=== PATIENT | female | born 1990 | race Caucasian/White ===

== ENCOUNTER 2024-07-08 15:53 | Outpatient (CLI) | payer BC, SELFPAY | END 2024-07-08 15:54 | disposition home or self-care (01) | LOC: ANHLAB 15:56 | PROVIDERS: Visit Provider Obstetrics & Gynecology | DX: R30.9 Painful micturition, unspecified (principal) | CPT/HCPCS: 87086 ==

== ENCOUNTER 2024-07-15 10:39 | Observation (INO) | payer BC, SELFPAY ==
--- NOTE | 2024-07-15 10:59 | OBADM ---
This patient, Chely Sr, admitted to the OB room OB Post 115 for observation. Patient/family oriented to hospital policies and general routines including ID bracelet, bed and alarms, visiting hours, pain management, procedures, bathroom and other care routines, personal items, smoking policy, room service/diet, and visiting hours. Patient/Family are encouraged to report perceived risks to care and to ask questions if they do not understand what they are told or what they should do.
[2024-07-15 11:01] VITALS: BP 106/53; PULSE 90
--- NOTE | 2024-07-15 11:15 | PC.NURSE ---
Dr. Bey updated on NST and complaints of lower left sided pain. Orders received to send UA.
[2024-07-15 11:27] LABS: Add Urine Microscopic? NO; Appearance Urine Clear (Clear); Bilirubin Urine Negative (Negative); Blood Urine Negative (Negative); Color Urine Yellow (Yellow); Glucose Urine UA Negative (Negative); Ketones Urine 1+ mg/dL (Negative); Leukocyte Esterase Ur Negative LEU/UL (Negative); Nitrate Urine Negative (Negative); Protein Urine Negative (Negative); Specific Grav Ur 1.017 (1.001-1.035); Urobilinogen Urine 0.2 mg/dL (<2.0); pH Urine 6.5 (5.0-9.0)
[2024-07-15 11:31] VITALS: BP 106/53; PULSE 90
--- NOTE | 2024-07-15 11:38 | P.PNOB_ITS ---
OB - Triage/Final Diagnosis Visit Information Date of evaluation: 07/15/24 Reason for evaluation: other (flank pain) Comments/Additional reasons for admission: I have assessed the risk for this patient, Chely Sr, and determined that she would benefit from observation care. Evaluation Laboratory results: Laboratory Tests 07/15/24 11:11 Urine Color Yellow Urine Appearance Clear Urine pH 6.5 Ur Specific [place] 1.017 Urine Protein Negative Urine Glucose (UA) Negative Urine Ketones 1+ H Ur Blood (Man) Negative Urine Nitrate Negative Urine Bilirubin Negative Urine Urobilinogen 0.2 Leukocyte Esterase Rfl Negative Vital signs: Vital Signs - 24 hr 07/15/24 10:58 07/15/24 11:01 07/15/24 11:31 Pulse Rate 90 90 Blood Pressure 106/53 L Blood Pressure [Left Arm] 106/53 L Oxygen Delivery Room Air
== END 2024-07-15 11:47 | disposition home or self-care (01) ==
PROVIDERS: Admitting Provider Student in an Organized Health Care Education/Training Program; Visit Provider Student in an Organized Health Care Education/Training Program
DX: O26.892 Other specified pregnancy related conditions, second trimester (principal); R10.9 Unspecified abdominal pain; Z3A.25 25 weeks gestation of pregnancy
CPT/HCPCS: 59025; 81003; G0378; G0379

== ENCOUNTER 2024-08-11 14:15 | Outpatient (RCR) | payer BC, SELFPAY ==
[2024-08-08 10:46] LABS: Hematocrit 31.8 % (37.0-47.0); Hemoglobin 10.3 g/dL (12.0-15.0); Mean Corpuscular HGB Conc 32.4 g/dl (32-36); Mean Corpuscular Hemoglobin 30.1 pg (26-34); Mean Platelet Volume 10.9 fl (7.4-10.4); Platelet Count Result 237 k/mm3 (150-375); Red Blood Count 3.42 M/mm3 (4.2-5.4); Red Cell Distribution Width 13.5 % (11.5-14.5); White Blood Count 8.3 K/mm3 (4.5-10.0)
[2024-08-08 11:06] LABS: Glucose 1 Hour PP 50gm Dose 149 mg/dL
[2024-08-08 11:45] LABS: HIV 1/2 Ab P24 Ag Result Negative (Negative)
[2024-08-08 13:21] LABS: Rapid Plasma Reagin Non-Reactive (NonReactive)
[2024-08-11] MEDS: RHO(D) IMMUNE GLOBULIN 300 MCG/2 ML SYRINGE IM (16:35)
== END 2024-08-11 14:30 | disposition home or self-care (01) ==
LOC: ANHLAB 14:15
PROVIDERS: Visit Provider Student in an Organized Health Care Education/Training Program
DX: Z11.4 Encounter for screening for human immunodeficiency virus [HIV] (principal); Z11.3 Encounter for screening for infections with a predominantly sexual mode of transmission; Z29.13 Encounter for prophylactic Rho(D) immune globulin; O36.0190 Maternal care for anti-D [Rh] antibodies, unspecified trimester, not applicable or unspecified; Z3A.00 Weeks of gestation of pregnancy not specified
CPT/HCPCS: 36415; 82947; 84443; 85027; 85461; 86592; 86703; 86850; 86900; 86901; 90384; 96372; G0432; J2790

== ENCOUNTER 2024-08-29 07:00 | Outpatient (CLI) | payer BC, SELFPAY ==
[2024-08-29 07:51] LABS: Glucose Fasting Gestational 88 mg/dL (>/=95)
[2024-08-29 09:42] LABS: Glucose 1 Hour Gest 183 mg/dL (>/=180)
[2024-08-29 11:22] LABS: Glucose 2 Hour Gest 135 mg/dL (>/= 155)
[2024-08-29 11:24] LABS: Glucose 3 Hour Gest 105 mg/dL (>/=140)
== END 2024-08-29 07:01 | disposition home or self-care (01) ==
LOC: ANHLAB 07:01
PROVIDERS: Visit Provider Obstetrics & Gynecology
DX: O99.810 Abnormal glucose complicating pregnancy (principal); Z3A.00 Weeks of gestation of pregnancy not specified
CPT/HCPCS: 36415; 82951; 82952

== ENCOUNTER 2024-10-17 10:17 | Outpatient (CLI) | payer BC, SELFPAY ==
[2024-10-17 10:45] LABS: Basophils Percent Auto 0.2 % (0.2-1.2); Eosinophils Absolute Auto 0.1 K/mm3 (0-0.3); Eosinophils Percent Auto 1.5 % (0-4.4); Hematocrit 36.1 % (37.0-47.0); Hemoglobin 11.7 g/dL (12.0-15.0); Immature Granulocyte Absolute 0.04 K/mm3 (0.00-0.031); Immature Granulocyte Percent A 0.4 % (0-0.5); Lymphocytes Absolute Auto 2.05 K/mm3 (0.9-3.2); Lymphocytes Percent Auto 21.3 % (18.3-44.2); Mean Corpuscular HGB Conc 32.4 g/dl (32-36); Mean Corpuscular Volume 92.6 fl (80-100); Mean Platelet Volume 11.5 fl (7.4-10.4); Monocytes Absolute Auto 0.5 K/mm3 (0.1-0.6); Monocytes Percent Auto 5.4 % (2.6-8.5); Neutrophils Absolute Auto 6.9 K/mm3 (1.3-6.7); Neutrophils Percent Auto 71.2 % (45.5-73.1); Platelet Count Result 192 k/mm3 (150-375); White Blood Count 9.6 K/mm3 (4.5-10.0)
[2024-10-17 10:46] VITALS: BP 135/79; PULSE 95
[2024-10-17 10:49] LABS: Add Urine Microscopic? YES; Appearance Urine Cloudy (Clear); Bacteria Urine Rare /hpf; Bilirubin Urine Negative (Negative); Blood Urine Negative (Negative); Color Urine Yellow (Yellow); Glucose Urine UA Negative (Negative); Ketones Urine Trace mg/dL (Negative); Leukocyte Esterase Ur 2+ LEU/UL (Negative); Nitrate Urine Negative (Negative); Non Pathogenic Casts 0-2; Protein Urine Trace mg/dL (Negative); RBC Urine 0-2 /hpf (0-2); Specific Grav Ur 1.021 (1.001-1.035); Squamous Epithelial Cell Urine Many /hpf (Few)
[2024-10-17 10:56] LABS: Alanine Aminotransferase 14 U/L (6-35); Albumin Level 3.4 g/dL (3.5-5.1); Alkaline Phosphatase 111 U/L (38-126); Anion Gap 10 mmol/L (4-12); Aspartate Amino Transferase 23 U/L (14-36); Bilirubin,Total 0.4 mg/dL (0.2-1.3); Blood Urea Nitrogen 9 mg/dL (7-17); Calcium 8.9 mg/dL (8.4-10.2); Carbon Dioxide 22 mmol/L (22-30); Chloride 104 mmol/L (98-107); Creatinine Urine 175.4 mg/dL; Estimated Glomerular Filt Rate > 60; Glucose 107 mg/dL (65-110); Potassium 3.6 mmol/L (3.4-5.0); Sodium 136 mmol/L (137-145); Total Protein Urine Random 11 mg/dL; Ur Ttl Prot Creatinine Ratio 0.06 mg/mg (0-0.20); Uric Acid 7.1 mg/dL (2.5-7.5)
[2024-10-17 11:01] VITALS: BP 132/58; PULSE 91
[2024-10-17 11:14] VITALS: BP 135/79; PULSE 103
== END 2024-10-17 11:14 | disposition home or self-care (01) ==
LOC: ANHOBOP 10:21 → ANHOBPP 10:22
PROVIDERS: Visit Provider Student in an Organized Health Care Education/Training Program
DX: O13.9 Gestational [pregnancy-induced] hypertension without significant proteinuria, unspecified trimester (principal); Z3A.00 Weeks of gestation of pregnancy not specified
CPT/HCPCS: 36415; 59025; 80053; 81001; 82570; 84156; 84550; 85025

== ENCOUNTER 2024-10-19 10:05 | Outpatient (CLI) | payer BC, SELFPAY ==
[2024-10-19 10:40] LABS: Hematocrit 35.9 % (37.0-47.0); Hemoglobin 11.8 g/dL (12.0-15.0); Mean Corpuscular HGB Conc 32.9 g/dl (32-36); Mean Corpuscular Hemoglobin 30.1 pg (26-34); Mean Corpuscular Volume 91.6 fl (80-100); Mean Platelet Volume 12.2 fl (7.4-10.4); Platelet Count Result 194 k/mm3 (150-375); Red Blood Count 3.92 M/mm3 (4.2-5.4); Red Cell Distribution Width 14.9 % (11.5-14.5); White Blood Count 9.2 K/mm3 (4.5-10.0)
--- OUTSIDE RECORDS SUMMARY | 2024-10-19 11:10 | XMS_ITS | Referral Summary ---
Author Organization [facility] Address [address] [place] [address] Care Team Providers Care Rural Service Engineer Name Role Phone No, Physician Primary Care Provider [phone] No, Physician Unavailable Encounters Date Type Department Care Team Description 08/04/2024 5:15 PM UNDERCUTTER OPERATOR Office Visit [facility] at [place] [phone] Tyesha Kinney NP Acute respiratory infection (Primary Dx); Shortness of breath; Mild intermittent asthma with exacerbation 08/04/2024 5:06 PM UNDERCUTTER OPERATOR - 08/04/2024 5:47 PM UNDERCUTTER OPERATOR Emergency [facility] Emergency Department [address] [place] [id number] Discharge Disposition: Left without being seen 08/02/2024 2:45 PM UNDERCUTTER OPERATOR Office Visit [facility] Medical [facility] at [address] [phone] Indiana Cody NP Acute respiratory infection (Primary Dx) 07/26/2024 6:55 PM UNDERCUTTER OPERATOR - 07/26/2024 8:11 PM UNDERCUTTER OPERATOR Hospital Encounter [facility] [address] [place] [address] Demi Elliott DO Discharge Disposition: Discharge to home or self care from Last 3 Months Allergies Active Allergy Reactions Criticality Noted Date Comments Codeine Anaphylaxis High 10/24/2022 Pt states her eyes rolled back and went unconscious. 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 Active aspirin 81 mg chewable tablet Take 1 tablet (81 mg total) by mouth daily Active ondansetron ODT (ZOFRAN-ODT) 4 mg disintegrating tablet 4 Active fluocinonide (LIDEX) 0.05 % external solution Apply topically 2 (two) times a day 4 Active albuterol HFA (PROVENTIL HFA,VENTOLIN HFA,PROAIR HFA) 90 mcg/actuation inhalerIndications :Mild intermittent asthma with exacerbation Inhale 2 puffs every 4 (four) hours as needed for shortness of breath or wheezing 4 Active azithromycin (ZITHROMAX) 250 mg tabletIndications: Acute respiratory infection Take 2 tablets the first day, then 1 tablet daily for 4 days. 6 tablet 4 Active Active Problems Problem Noted Date Diagnosed Date Irregular bleeding 06/30/2023 Assessment & Plan (06/30/2023 4:37 PM UNDERCUTTER OPERATOR): Discussed irregular bleeding likely due from switching methods from Nuvaring to pills. We will plan to change her pills to Sprintec as she would like to continue pills for now. When to call discussed including worsening or persistent bleeding. Consider CBC. Plan to reevaluate in 3 months after new pills, sooner if needed. Encounter for general jayjay ferrell and advice on contraceptive management 03/27/2023 Assessment & Plan (04/23/2023 11:01 AM CDT): Discussed that some vaginal discharge is normal with the vaginal ring. She would like to go back on the pill. Reviewed risks, benefits, warning signs, and proper use. She will take another home test Thursday before starting new pills. She will call with any concerns. Assessment & Plan (03/27/2023 2:43 PM CDT): Discussed multiple options. She has decided on Nuvaring. Reviewed risks, benefits, warning signs, and proper use. Estimated Date of Delivery Comme nts Yes 10/23/2024 Based on Other B asis Social History Tobacco Use Types Packs/Day Years Used Date Smoking Tobacco: Never Tobacco Cessation:Counseling Given: Yes Humiliation, Afraid, Rape, and Kick questionnair e Answer Date Recorded Within the last year, have y ou been afraid of your partner or ex-partner? No 03/27/2023 Within the last year, have y ou been humiliated or emotionally abused in other ways by your partner or ex-partner? No Within the last year, have y ou been kicked, hit, slapped, or otherwise physically hurt by your partner or ex-partner? No 03/27/2023 Within the last year, have y ou been raped or forced to have any kind of sexual activity by your partner or ex-partner? No 03/27/2023 Social Connection and Isolat ion Panel [NHANES] Answer Date Recorded In a typical week, how many times do you talk on the phone with family, friends, or neighbors? More than three times a week 07/26/2024 How often do you get togethe r with friends or relatives? More than three times a week 07/26/2024 How often do you attend chur or methodist services? More than 4 times per year 07/26/2024 Do you belong to any clubs o r organizations such as buddhist groups, unions, fraternal or athletic groups, or school groups? No 07/26/2024 How often do you attend meet ings of the clubs or organizations you belong to? Never 07/26/2024 Are you , , di vorced, , never , or living with a partner? 07/26/2024 AUDIT-C Answer Date Recorded Q1: How often do you have a drink containing alcohol? Never 07/26/2024 Q2: How many drinks containi ng alcohol do you have on a typical day when you are drinking? Patient does not drink Q3: How often do you have si x or more drinks on one occasion? Never 07/26/2024 Overall Financial Resource Strain (CARDIA) Answe r Date Recorded How hard is it for you to pa y for the very basics like food, housing, medical care, and heating? Not hard at all 07/26/2024 PHQ-2 Answer Date Recorded PHQ-2 Total Score 0 07/26/2024 [facility] - Occupational Stress Questionnaire Answer Date Recorded Do you feel stress - tense, restless, nervous, or anxious, or unable to sleep at night because your mind is troubled all the time - these days? Not at all 07/26/2024 Exercise Vital Sign Answer Date Recorde d On average, how many days pe r week do you engage in moderate to strenuous exercise (like a brisk walk)? 0 days 07/26/2024 On average, how many minutes do you engage in exercise at this level? 0 min 07/26/2024 Hunger Vital Sign Answer Date Recorded Within the past 12 months, y ou worried that your food would run out before you got the money to buy more. Never true 07/26/20 24 Within the past 12 months, t he food you bought just didn't last and you didn't have money to get more. Never true 07/26/2024 PRAPARE - Transportation Answer Date Re corded In the past 12 months, has l ack of transportation kept you from medical appointments or from getting medications? No 07/17 In the past 12 months, has l ack of transportation kept you from meetings, work, or from getting things needed for daily living? No 07/26/2024 Housing Stability Vital Sign Answer Gonzalez e Recorded In the last 12 months, was t here a time when you were not able to pay the mortgage or rent on time? No 07/26/2024 In the past 12 months, how m any times have you moved where you were living? 0 07/26/2024 At any time in the past 12 m [facility], were you homeless or living in a half-way (including now)? No 07/26/2024 Personal Safety Answer Date Recorded Have you ever been in or are you currently in a harmful physical or emotional relationship or is someone making you feel afraid or unsafe? Denies 08/04/2024 Estimated Date of Delivery Comme nts Yes 10/23/2024 Based on Other B asis Sex and Gender Information Value Date Recorded Sex Assigned at Not on file Legal Sex Female 8:55 AM UNDERCUTTER OPERATOR Gender Identity Not on file Sexual Orientation Not on file Last Filed Vital Signs Vital Sign Reading Time Taken Comments Blood Pressure 100/54 08/04/2024 5:28 PM UNDERCUTTER OPERATOR Pulse 114 08/04/2024 5:28 PM UNDERCUTTER OPERATOR Temperature 37.7 C (99.8 F) 08/04/2024 5:28 PM UNDERCUTTER OPERATOR Respiratory Rate 21 08/04/2024 5:28 PM UNDERCUTTER OPERATOR Oxygen Saturation 98% 08/04/2024 5:28 PM UNDERCUTTER OPERATOR Inhaled Oxygen Concentration - - Weight 100.2 kg (221 lb) 08/04/2024 5:28 PM UNDERCUTTER OPERATOR Height 162.6 cm (5' 4 ) 08/04/2024 5:28 PM UNDERCUTTER OPERATOR Body Mass Index 37.93 08/04/2024 5:28 PM UNDERCUTTER OPERATOR Plan of Treatment Upcoming Encounters Date Type Department Care Team (Late st Contact Info) Description 10/23/2024 Hospital Encounter [facility] [address] [place] [address] Demi Elliott, [address] [place] [address] Procedures Procedure Name Priority Date/Time Associated Diagnosis Comments POC INFLUENZA A/B, COVID-19 ANTIGEN Routine 08/02/2024 2:49 PM UNDERCUTTER OPERATOR Acute respiratory infection URINALYSIS, MICROSCOPIC ONLY STAT 07/26/2024 7:11 PM UNDERCUTTER OPERATOR URINALYSIS AND REFLEX TO MICROSCOPIC AND CULTURE STAT 07/26/2024 7:11 PM UNDERCUTTER OPERATOR PAP AND HPV, REFLEX TO HPV GENOTYPES Routine 03/27/2023 3:20 PM CDT Well woman exam from Last 3 Months or Most Recently Relevant to Health Maintenance Results * POC Influenza A/B, COVID-19 antigen (08/02/2024 2:49 PM UNDERCUTTER OPERATOR) Pathologist [facility] Influenza A Ag, POC Negative Negative [facility] [place] Influenza B Ag, POC Negative Negative [facility] COVID-19 Ag POC Presumptive Negative Presumptive Negative, Invalid [facility] Nasal 08/02/2024 2:49 PM UNDERCUTTER OPERATOR Indiana Cody NP POINT OF CARE TEST ORDER VARSHA Final Result [facility] [address] [phone] * (ABNORMAL) Urinalysis reflex to microscopic and culture Urine, clean voided (07/26/2024 7:11 PM UNDERCUTTER OPERATOR) Color, ur Yellow Yellow Clarity, ur Turbid(A) Clear [facility] ([place]) Specific gravity, ur 1.016 1.003 - 1.030 [facility] ([place]) pH, urine 6.5 [facility] ([place]) Comment: Interpretive Data U rine pH is affected by diet, medications, systemic acid-base disturbances, and renal tubular function. pH may affect urinary stone formation. For example, urine pH below 6.0 may help reduce the tendency for calcium phosphate stones and pH greater than 6.0 may reduce the tendency for uric acid stone formation. Source: [facility] [employer] Current Interpretive Data was last revised on 2017 Protein, ur ql Negative Negative [facility] ([place]) Glucose, ur ql Negative Negative [facility] ([place]) Ketones, ur Negative Negative [facility] ([place]) Bilirubin, ur Negative Negative [facility] ([place]) Blood, ur Negative Negative [facility] ([place]) Urobilinogen, ur <2.0 <2.0 mg/dL [facility] ([place]) Nitrite, ur Negative Negative [facility] ([place]) Leukocyte esterase, ur 3+(A) Negative [facility] ([place]) UA reflex comment Reflex to microscopic UA will be performed. [facility] ([place]) Urine, clean voided 07/26/2024 7:11 PM UNDERCUTTER OPERATOR 07/26/2024 7:17 PM UNDERCUTTER OPERATOR Demi Elliott DO LAB MICROBIOLOGY - GENE RAL ORDERABLES Final Result [facility] ([place]) [address] [facility] [employer] [place] [address] * (ABNORMAL) Urinalysis, microscopic only (07/26/2024 7:11 PM UNDERCUTTER OPERATOR) WBC, ur 6-10(A) 0 - 5 /HPF RBC, ur 0-2 0 - 2 /HPF [facility] ([place]) Epithelial cells, squamous, ur 11-20(A) 0 - 5 /HPF [facility] ([place]) Bacteria, ur Trace(A) [facility] ([place]) Mucous, ur Present(A) [facility] ([place]) Culture Reflex Comment Reflex conditions for urine culture (WBC >10) not met. [facility] ([place]) Urine, clean voided 07/26/2024 7:11 PM UNDERCUTTER OPERATOR 07/26/2024 7:17 PM UNDERCUTTER OPERATOR Demi Elliott DO LAB URINE ORDERABLES Fi nal Result Performing Organization Address City/[facility]/ZIP Co de Phone Number [facility] ([place]) 1 [facility] [employer] [place] [address] * Pap and HPV, reflex to HPV Genotypes (03/27/2023 3:20 PM CDT) CLINICAL INFORMATION: [facility] Comment:None given LMP [facility] Comment:NONE GIVEN Previous Pap [facility] Comment:NONE GIVEN Prev. Bx [facility] Comment:NONE GIVEN SOURCE: [facility] Comment:Cervix, Endocervix Pap, specimen adequacy [facility] [employer] [facility] Comment: Satisfactory for evaluation. Endocervical/transformation zone component present. Age and/or menstrual status not provided HPV interp [facility] Comment: Cytology Results: Negative for intraepithelial lesion or malignancy. 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 Comment: [place], CT(ASCP) CT screening location: [place] [address] [place] [address] Comment [facility] Comment: EXPLANATORY NOTE: The Pap is a screening test for cervical cancer. It is not a diagnostic test and is subject to false negative and false positive results. It is most reliable when a satisfactory sample, regularly obtained, is submitted with relevant clinical findings and history, and when the Pap result is evaluated along with historic and current clinical information. Human papillomavirus DNA, High Risk E6/E7 Not Detected NOT DETECTED [facility] Comment: Not Detected High Risk HPV types (16,18,31,33,35,39,45,51,52, 56,58,59,66,68) were not detected. Other HPV types which cause anogenital lesions may be present. The significance of the other types of HPV in malignant processes has not been established. Methodology: Real Time PCR Thin prep 03/27/2023 3:20 PM CDT 03/28/2023 1:26 AM CDT Joann Bhatia NP LAB CYTOLOGY ORDERABLES Fin al Result [facility] [address] [place] [address] [facility] [address] [facility] [place] [address] from Last 3 Months or Most Recently Relevant to Health [place] [address] [facility] OOS [employer] ACCESS OOS [employer] ACCESS OOS Care Teams Rural Service Engineer Relationship Specialty Start Date End Date No, Physician PCP - General 07/27/24 No, Physician 07/27/24
--- OUTSIDE RECORDS SUMMARY | 2024-10-19 11:10 | XMS_ITS | Clinical Summary ---
Author Organization [facility] Address [address] [place] [address] Care Team Providers Care World Travel Counselor Name Role Phone No, Physician Primary Care Provider [phone] No, Physician Unavailable Allergies Active Allergy Reactions Criticality Noted Date Comments Codeine Anaphylaxis High 10/24/2022 Pt states her eyes rolled back and went unconscious. 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 Active aspirin 81 mg chewable [...] 06/30/2023 Assessment & Plan (06/30/2023 4:37 PM MEDICAL ADMINISTRATIVE SPECIALIST): Discussed irregular bleeding likely due from switching [...] Yes 10/23/2024 Based on Other B asis Encounters Date Type Department Care Team Description 08/04/2024 5:15 PM MEDICAL ADMINISTRATIVE SPECIALIST Office Visit [facility] at [address] [phone] Tyesha Kinney NP Acute respiratory infection (Primary Dx); Shortness of breath; Mild intermittent asthma with exacerbation 08/04/2024 5:06 PM MEDICAL ADMINISTRATIVE SPECIALIST - 08/04/2024 5:47 PM MEDICAL ADMINISTRATIVE SPECIALIST Emergency [facility] Emergency Department 1 [place] [address] Discharge Disposition: Left without being seen 08/02/2024 2:45 PM MEDICAL ADMINISTRATIVE SPECIALIST Office Visit [facility] Medical [facility] Care at [address] [place] [phone] [place] Cody NP Acute respiratory infection (Primary Dx) 07/26/2024 6:55 PM MEDICAL ADMINISTRATIVE SPECIALIST - 07/26/2024 8:11 PM MEDICAL ADMINISTRATIVE SPECIALIST Hospital Encounter [facility] 1 [place] [address] Demi Elliott, Discharge Disposition: Discharge to home or self care from Last 3 Months Surgical History Surgery Date Site/Laterality Comments SECTION 01/15/2011 - 02/13/2011 APPENDECTOMY 02/14/2011 - 03/16/2011 APPENDECTOMY SECTION Medical History Medical History Date Comments Mental disorder anxiety Thyroid disease hypothyroid and hashimotos Autoimmune disease hashimotos Depression Psoriasis Family History Medical History Relation Name Comments Cervical cancer Mother's Sister Relation Name Status Comments Maternal cousin Alive Mother's Sister Alive Social History Tobacco Use Types Packs/Day Years [...] 07/26/2024 How often do you attend chur ch or gnosticist services? More than 4 times per year 07/26/2024 Do you belong to any clubs o r organizations such as rastafarian groups, unions, fraternal or athletic groups, or [...] Date Recorded PHQ-2 Total Score 0 07/26/2024 [facility] of Occupat ional Health - Occupational Stress Questionnaire Answer Date Recorded [...] any time in the past [facility], were you homeless or living in a jail (including now)? No 07/26/2024 Personal Safety Answer [...] on file Legal Sex Female 8:55 AM MEDICAL ADMINISTRATIVE SPECIALIST Gender Identity Not on file Sexual Orientation Not on file Obstetrics History Para Term AB IAB SAB Ectopic Multiple Livin g Live Births 3 2 0 0 0 0 0 0 Date Outcome GA Total Labor Labor/2nd/3rd Weight Sex Type Anes PTL Nani A1 A5 Name Clin Para Para Current Summary Episode Dates Number of Fetuses Estimated Date of Delivery 07/26/2024 - Present (10/19/2024) 10/23/2024 (set by Connie Pantoja, EDUARDA on 07/26/2024 based on Other Basis) Dating Summary Based On KATIE [place] Diff Other Basis 10/23/2024 Working Vitals Pregravid Weight Height TWG (As of 10/19/2024) Pregrav id BMI 162.6 cm (5' 4 ) Date GA Fund Present FHR Mvmt BP Weight Edema Alb Glu Ket Dil/ Eff/Sta 4 27w2d Inpatient data not displayed here. See encounter summary. Last Filed Vital Signs Vital Sign Reading Time Taken Comments Blood Pressure 100/54 08/04/2024 5:28 PM MEDICAL ADMINISTRATIVE SPECIALIST Pulse 114 08/04/2024 5:28 PM MEDICAL ADMINISTRATIVE SPECIALIST Temperature 37.7 C (99.8 F) 08/04/2024 5:28 PM MEDICAL ADMINISTRATIVE SPECIALIST Respiratory Rate 21 08/04/2024 5:28 PM MEDICAL ADMINISTRATIVE SPECIALIST Oxygen Saturation 98% 08/04/2024 5:28 PM MEDICAL ADMINISTRATIVE SPECIALIST Inhaled Oxygen Concentration - - Weight 100.2 kg (221 lb) 08/04/2024 5:28 PM MEDICAL ADMINISTRATIVE SPECIALIST Height 162.6 cm (5' 4 ) 08/04/2024 5:28 PM MEDICAL ADMINISTRATIVE SPECIALIST Body Mass Index 37.93 08/04/2024 5:28 PM MEDICAL ADMINISTRATIVE SPECIALIST Plan of Treatment Upcoming Encounters Date Type Department Care Team (Late st Contact Info) Description 10/23/2024 Hospital Encounter [facility] 1 [place] [address] Demi Elliott, [address] [place] [address] Health Maintenance Due Date Last Done Comments Hepatitis C Screening 1991 Varicella Vaccines (1 of 2 - 13+ 2-dose series) 12/03/2004 Hepatitis B Screening 12/03/2009 Pneumococcal vaccine <65 (1 of 2 - PCV) 12/03/2010 Cervical Cancer Screening 03/27/2024 03/27/2023 Regular Well Visit/Exam 18-64 03/27/2024 03/27/2023 Influenza Vaccine (#1) 2024 06/26/2023 Depression Screening 07/26/2025 07/26/2024, 03/27/2023 DTaP/Tdap/Td Vaccine (2 - Td or Tdap) 03/29/2032 03/29/2022 HPV Vaccines Aged Out No longer eligi ble based on patient's age to complete this topic Procedures Procedure Name Priority Date/Time Associated Diagnosis Comments POC INFLUENZA A/B, COVID-19 ANTIGEN Routine 08/02/2024 2:49 PM MEDICAL ADMINISTRATIVE SPECIALIST Acute respiratory infection URINALYSIS, MICROSCOPIC ONLY STAT 07/26/2024 7:11 PM MEDICAL ADMINISTRATIVE SPECIALIST URINALYSIS AND REFLEX TO MICROSCOPIC AND CULTURE STAT 07/26/2024 7:11 PM MEDICAL ADMINISTRATIVE SPECIALIST PAP AND HPV, REFLEX TO HPV GENOTYPES Routine 03/27/2023 3:20 PM CDT Well woman exam from Last 3 Months or Most Recently Relevant to Health Maintenance Results * POC Influenza A/B, COVID-19 antigen (08/02/2024 2:49 PM MEDICAL ADMINISTRATIVE SPECIALIST) Influenza A Ag, POC Negative Negative [facility] [place] Influenza B Ag, POC Negative Negative [facility] COVID-19 Ag POC Presumptive Negative Presumptive Negative, Invalid [facility] Nasal 08/02/2024 2:49 PM MEDICAL ADMINISTRATIVE SPECIALIST us Indiana Cody NP POINT OF CARE TEST ORDER VARSHA Final Result [facility] [place] [id number] [address] * (ABNORMAL) Urinalysis reflex to microscopic and culture Urine, clean voided (07/26/2024 7:11 PM MEDICAL ADMINISTRATIVE SPECIALIST) Color, ur Yellow Yellow Clarity, ur Turbid(A) [...] tendency for uric acid stone formation. Source: [facility] RoomActually Current Interpretive Data was last revised on [...] ([place]AY[place]) Urine, clean voided 07/26/2024 7:11 PM MEDICAL ADMINISTRATIVE SPECIALIST 07/26/2024 7:17 PM MEDICAL ADMINISTRATIVE SPECIALIST us Demi Elliott DO LAB MICROBIOLOGY - GENE RAL ORDERABLES Final Result [facility] ([place]) 1 [facility] Department [place] [address] * (ABNORMAL) Urinalysis, microscopic only (07/26/2024 7:11 PM MEDICAL ADMINISTRATIVE SPECIALIST) WBC, ur 6-10(A) 0 - 5 /HPF RBC, ur 0-2 0 - 2 /HPF [facility] ([place]) Epithelial cells, squamous, ur 11-20(A) 0 - 5 /HPF [facility] ([place]) Bacteria, ur Trace(A) [facility] ([place]) Mucous, ur Present(A) [facility] ([place]) Culture Reflex Comment Reflex conditions for urine culture (WBC >10) not met. [facility] Urine, clean voided 07/26/2024 7:11 PM MEDICAL ADMINISTRATIVE SPECIALIST 07/26/2024 7:17 PM MEDICAL ADMINISTRATIVE SPECIALIST Demi Elliott DO LAB URINE ORDERABLES [facility] Result [facility] ([place]) 1 [facility] Department [place] [address] * Pap and HPV, reflex to HPV Genotypes (03/27/2023 3:20 PM CDT) CLINICAL INFORMATION: [facility] Comment:None given LMP [facility] Comment:NONE GIVEN Previous Pap [facility] Comment:NONE GIVEN Prev. Bx [facility] Comment:NONE GIVEN SOURCE: [facility] Comment:Cervix, Endocervix Pap, specimen adequacy [facility] Comment: Satisfactory for evaluation. Endocervical/transformation zone component present. Age and/or menstrual status not provided HPV interp [facility] Comment: Cytology Results: Negative for intraepithelial lesion or malignancy. [employer] [facility] Comment: [place], CT(ASCP) CT screening location: [place] [address] [place] [address] Comment [facility] Comment: EXPLANATORY NOTE: The Pap is [...] High Risk E6/E7 Not Detected NOT DETECTED [facility] Comment: Not Detected High Risk HPV types (16,18,31,33,35,39,45,51,52, 56,58,59,66,68) were not detected. Other HPV types which cause anogenital lesions may be present. The significance of the other types of HPV in malignant processes has not been established. Methodology: Real Time PCR Thin prep 03/27/2023 3:20 PM CDT 03/28/2023 1:26 AM CDT Joann Bhatia NP LAB CYTOLOGY ORDERABLES Fin al Result [facility] [address] [place] [address] [employer]anjan [facility] [address] [place] [address] from Last 3 Months or Most Recently Relevant to Health Maintenance Insurance [address] [place] [id number] [employer] O[address] [place] [id number] [place] [address] [place] [address] [employer] Care Teams World Travel Counselor Relationship Specialty Start Date End Date No, Physician PCP - General 07/27/24 No, Physician 07/27/24
[2024-10-19 11:17] LABS: Syphilis IgG/IgM Antibody Negative (Negative)
[2024-10-19 11:32] LABS: HIV 1/2 Ab P24 Ag Result Negative (Negative)
== END 2024-10-19 10:06 | disposition home or self-care (01) ==
LOC: ANHLAB 10:07
PROVIDERS: Visit Provider Student in an Organized Health Care Education/Training Program
DX: Z01.818 Encounter for other preprocedural examination (principal)
CPT/HCPCS: 36415; 85027; 86593; 86703; 86850; 86900; 86901; G0432

== ENCOUNTER 2024-10-20 05:30 | Inpatient (IN) | payer BC, SELFPAY ==
[2024-10-20] VITALS (55 sets, daily range): BP systolic 89–147; BP diastolic 39–89; PULSE 60–95; RESP 14–18; TEMP 36.1–36.8; O2SAT 92–100; BMI 41.8
--- OUTSIDE RECORDS SUMMARY | 2024-10-20 00:26 | XMS_ITS | Referral Summary ---
Author Organization [facility] Address 1 [place] [address] Care Team Providers Care Evp Global Product Leadership Name Role Phone No, Physician Primary Care Provider [phone] No, Physician Unavailable Encounters Date Type Department Care Team Description 08/04/2024 5:15 PM TECHNOLOGY RESOURCE TEACHER Office Visit [facility] Medical Group [facility] Care at [place] [phone] Tyesha Kinney NP Acute respiratory infection (Primary Dx); Shortness of breath; Mild intermittent asthma with exacerbation 08/04/2024 5:06 PM TECHNOLOGY RESOURCE TEACHER - 08/04/2024 5:47 PM TECHNOLOGY RESOURCE TEACHER Emergency [facility] Emergency Department [address] [place] [address] Discharge Disposition: Left without being seen 08/02/2024 2:45 PM TECHNOLOGY RESOURCE TEACHER Office Visit [facility] Medical [facility] Care at [address] [phone] Indiana Cody NP Acute respiratory infection (Primary Dx) 07/26/2024 6:55 PM TECHNOLOGY RESOURCE TEACHER - 07/26/2024 8:11 PM TECHNOLOGY RESOURCE TEACHER Hospital Encounter [facility] [address] [place] [id number] Demi Elliott DO Discharge Disposition: Discharge to [...] 1 tablet (112 mcg total) by mouth 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 More than 4 times per year 07/26/2024 Do you belong to any clubs o r organizations such as jain groups, unions, fraternal or athletic groups, or [...] Date Recorded PHQ-2 Total Score 0 07/26/2024 [facility] of Occupat ional [facility] - Occupational Stress Questionnaire Answer Date [...] any time in the past 12 m [facility], were you homeless or living in a custodial (including now)? No 07/26/2024 Personal Safety Answer [...] on file Legal Sex Female 8:55 AM TECHNOLOGY RESOURCE TEACHER Gender Identity Not on file Sexual Orientation Not on file Last Filed Vital Signs Vital Sign Reading Time Taken Comments Blood Pressure 100/54 08/04/2024 5:28 PM TECHNOLOGY RESOURCE TEACHER Pulse 114 08/04/2024 5:28 PM TECHNOLOGY RESOURCE TEACHER Temperature 37.7 C (99.8 F) 08/04/2024 5:28 PM TECHNOLOGY RESOURCE TEACHER Respiratory Rate 21 08/04/2024 5:28 PM TECHNOLOGY RESOURCE TEACHER Oxygen Saturation 98% 08/04/2024 5:28 PM TECHNOLOGY RESOURCE TEACHER Inhaled Oxygen Concentration - - Weight 100.2 kg (221 lb) 08/04/2024 5:28 PM TECHNOLOGY RESOURCE TEACHER Height 162.6 cm (5' 4 ) 08/04/2024 5:28 PM TECHNOLOGY RESOURCE TEACHER Body Mass Index 37.93 08/04/2024 5:28 PM TECHNOLOGY RESOURCE TEACHER Plan of Treatment Upcoming Encounters Date Type Department Care Team (Late st Contact Info) Description 10/23/2024 Hospital Encounter [facility] 1 [place] [address] Demi Elliott, [address] [place] [id number] Procedures Procedure Name Priority Date/Time Associated Diagnosis Comments POC INFLUENZA A/B, COVID-19 ANTIGEN Routine 08/02/2024 2:49 PM TECHNOLOGY RESOURCE TEACHER Acute respiratory infection URINALYSIS, MICROSCOPIC ONLY STAT 07/26/2024 7:11 PM TECHNOLOGY RESOURCE TEACHER URINALYSIS AND REFLEX TO MICROSCOPIC AND CULTURE STAT 07/26/2024 7:11 PM TECHNOLOGY RESOURCE TEACHER PAP AND HPV, REFLEX TO HPV GENOTYPES Routine 03/27/2023 3:20 PM CDT Well woman exam from Last 3 Months or Most Recently Relevant to Health Maintenance Results * POC Influenza A/B, COVID-19 antigen (08/02/2024 2:49 PM TECHNOLOGY RESOURCE TEACHER) Pathologist [facility] Influenza A Ag, POC Negative Negative [facility] [place] Influenza B Ag, POC Negative Negative [facility] COVID-19 Ag POC Presumptive Negative Presumptive Negative, Invalid [facility] Nasal 08/02/2024 2:49 PM TECHNOLOGY RESOURCE TEACHER Indiana Cody NP POINT OF CARE TEST ORDER VARSHA Final Result [facility] [address] [address] * (ABNORMAL) Urinalysis reflex to microscopic and culture Urine, clean voided (07/26/2024 7:11 PM TECHNOLOGY RESOURCE TEACHER) Color, ur Yellow Yellow Clarity, ur Turbid(A) [...] tendency for uric acid stone formation. Source: [facility] [email or web address] Current Interpretive Data was last revised on [...] Leukocyte esterase, ur 3+(A) Negative [facility] ([place]) UA reflex comment Reflex to microscopic UA will be performed. [facility] ([place]) Urine, clean voided 07/26/2024 7:11 PM TECHNOLOGY RESOURCE TEACHER 07/26/2024 7:17 PM TECHNOLOGY RESOURCE TEACHER Demi Elliott DO LAB MICROBIOLOGY - GENE RAL ORDERABLES Final Result [facility] ([place]) 1 [facility] [email or web address] [address] * (ABNORMAL) Urinalysis, microscopic only (07/26/2024 7:11 PM TECHNOLOGY RESOURCE TEACHER) WBC, ur 6-10(A) 0 - 5 /HPF RBC, ur 0-2 0 - 2 /HPF [facility] ([place]) Epithelial cells, squamous, ur 11-20(A) 0 - 5 /HPF [facility] ([place]) Bacteria, ur Trace(A) [facility] ([place]) Mucous, ur Present(A) [facility] ([place]) Culture Reflex Comment Reflex conditions for urine culture (WBC >10) not met. [facility] ([place]) Urine, clean voided 07/26/2024 7:11 PM TECHNOLOGY RESOURCE TEACHER 07/26/2024 7:17 PM TECHNOLOGY RESOURCE TEACHER Demi Elliott DO LAB URINE ORDERABLES Fi nal Result Performing Organization Address City/[facility]/ZIP Co de Phone Number [facility] ([place]) 1 [facility] [email or web address] [address] * Pap and HPV, reflex to HPV Genotypes (03/27/2023 3:20 PM CDT) CLINICAL INFORMATION: [facility] [employer] [facility] Comment:None given LMP [facility] Comment:NONE GIVEN Previous Pap [facility] Comment:NONE GIVEN Prev. Bx [facility] Comment:NONE GIVEN SOURCE: [facility] Comment:Cervix, Endocervix Pap, specimen adequacy [facility] [employer] [facility] Comment: Satisfactory for evaluation. Endocervical/transformation zone component present. Age and/or menstrual status not provided HPV interp [facility] Comment: Cytology Results: Negative for intraepithelial lesion or malignancy. [employer] [facility] [employer] [facility] Comment: [place], CT(ASCP) CT screening location: [place] [address] [place] [address] Comment [facility] Comment: EXPLANATORY NOTE: The Pap is a [...] High Risk E6/E7 Not Detected NOT DETECTED [facility] Comment: Not Detected High Risk HPV types (16,18,31,33,35,39,45,51,52, 56,58,59,66,68) were not detected. Other HPV types which cause anogenital lesions may be present. The significance of the other types of HPV in malignant processes has not been established. Methodology: Real Time PCR Thin prep 03/27/2023 3:20 PM CDT 03/28/2023 1:26 AM CDT Joann Bhatia NP LAB CYTOLOGY ORDERABLES Fin al Result [facility] [address] [place] [address] [facility] [address] [facility] [place] [address] from Last 3 Months or Most Recently Relevant to Health Maintenance [place] [address] [facility] OOS [employer] OOS [employer] Care Teams Evp Global Product Leadership Relationship Specialty Start Date End Date No, Physician PCP - General 07/27/24 No, Physician 07/27/24
--- OUTSIDE RECORDS SUMMARY | 2024-10-20 00:26 | XMS_ITS | Clinical Summary ---
Author Organization [facility] Address [address] [place] [address] Care Team Providers Care Supervisor Filtration Name Role Phone No, Physician Primary Care Provider [phone] No, Physician Unavailable Allergies Active Allergy Reactions Criticality Noted Date Comments Codeine Anaphylaxis High 10/24/2022 Pt states her eyes rolled back and went unconscious. 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 (112 mcg total) by mouth strainer tender before breakfast Active aspirin 81 mg chewable [...] 06/30/2023 Assessment & Plan (06/30/2023 4:37 PM PEDIATRIC SOCIAL WORKER): Discussed irregular bleeding likely due from switching [...] Department Care Team Description 08/04/2024 5:15 PM PEDIATRIC SOCIAL WORKER Office Visit [facility] at [address] [address] Tyesha Kinney NP Acute respiratory infection (Primary Dx); Shortness of breath; Mild intermittent asthma with exacerbation 08/04/2024 5:06 PM PEDIATRIC SOCIAL WORKER - 08/04/2024 5:47 PM PEDIATRIC SOCIAL WORKER Emergency [facility] Emergency Department [address] [place] [address] Discharge Disposition: Left without being seen 08/02/2024 2:45 PM PEDIATRIC SOCIAL WORKER Office Visit [facility] Medical [facility] at [address] [place] [id number] Indiana Cody NP Acute respiratory infection (Primary Dx) 07/26/2024 6:55 PM PEDIATRIC SOCIAL WORKER - 07/26/2024 8:11 PM PEDIATRIC SOCIAL WORKER Hospital Encounter [facility] [address] [place] [address] Demi Elliott, Discharge Disposition: Discharge to home [...] often do you attend chur ch or anabaptism services? More than 4 times per year 07/26/2024 Do you belong to any clubs o r organizations such as latter-day groups, unions, fraternal or athletic groups, or [...] Date Recorded PHQ-2 Total Score 0 07/26/2024 [facility] of Occupat ional Health - Occupational Stress [...] any time in the past 12 m [facility], were you homeless or living in a chcf (including now)? No 07/26/2024 Personal Safety Answer [...] on file Legal Sex Female 8:55 AM PEDIATRIC SOCIAL WORKER Gender Identity Not on file Sexual Orientation Not on file Obstetrics History Para Term AB IAB SAB Ectopic Multiple Livin g Live Births 3 2 0 0 0 0 0 0 Date Outcome GA Total Labor Labor/2nd/3rd Weight Sex Type Anes PTL Nani A1 A5 Name Clin Para Para Current Summary Episode Dates Number of Fetuses Estimated Date of Delivery 07/26/2024 - Present (10/20/2024) 10/23/2024 (set by Connie Pantoja, EDUARDA on 07/26/2024 based on Other Basis) Dating Summary Based On KATIE GA Diff Other Basis 10/23/2024 Working Vitals Pregravid Weight Height TWG (As of 10/20/2024) Pregrav id BMI 162.6 cm (5' 4 ) Date GA Fund Present FHR Mvmt BP Weight Edema Alb Glu Ket Dil/ Eff/Sta 4 27w2d Inpatient data not displayed here. See encounter summary. Last Filed Vital Signs Vital Sign Reading Time Taken Comments Blood Pressure 100/54 08/04/2024 5:28 PM PEDIATRIC SOCIAL WORKER Pulse 114 08/04/2024 5:28 PM PEDIATRIC SOCIAL WORKER Temperature 37.7 C (99.8 F) 08/04/2024 5:28 PM PEDIATRIC SOCIAL WORKER Respiratory Rate 21 08/04/2024 5:28 PM PEDIATRIC SOCIAL WORKER Oxygen Saturation 98% 08/04/2024 5:28 PM PEDIATRIC SOCIAL WORKER Inhaled Oxygen Concentration - - Weight 100.2 kg (221 lb) 08/04/2024 5:28 PM PEDIATRIC SOCIAL WORKER Height 162.6 cm (5' 4 ) 08/04/2024 5:28 PM PEDIATRIC SOCIAL WORKER Body Mass Index 37.93 08/04/2024 5:28 PM PEDIATRIC SOCIAL WORKER Plan of Treatment Upcoming Encounters Date Type Department Care Team (Late st Contact Info) Description 10/23/2024 Hospital Encounter [facility] [address] [place] [address] Demi Elliott, [address] [place] [place] [id number] Health Maintenance Due Date Last Done Comments [...] A/B, COVID-19 ANTIGEN Routine 08/02/2024 2:49 PM PEDIATRIC SOCIAL WORKER Acute respiratory infection URINALYSIS, MICROSCOPIC ONLY STAT 07/26/2024 7:11 PM PEDIATRIC SOCIAL WORKER URINALYSIS AND REFLEX TO MICROSCOPIC AND CULTURE STAT 07/26/2024 7:11 PM PEDIATRIC SOCIAL WORKER PAP AND HPV, REFLEX TO HPV GENOTYPES Routine 03/27/2023 3:20 PM CDT Well woman exam from Last 3 Months or Most Recently Relevant to Health Maintenance Results * POC Influenza A/B, COVID-19 antigen (08/02/2024 2:49 PM PEDIATRIC SOCIAL WORKER) Influenza A Ag, POC Negative Negative [facility] Influenza B Ag, POC Negative Negative [facility] COVID-19 Ag POC Presumptive Negative Presumptive Negative, Invalid [facility] Nasal 08/02/2024 2:49 PM PEDIATRIC SOCIAL WORKER us Indiana Cody NP POINT OF CARE TEST ORDER VARSHA Final Result [facility] [place] [id number] [id number] * (ABNORMAL) Urinalysis reflex to microscopic and culture Urine, clean voided (07/26/2024 7:11 PM PEDIATRIC SOCIAL WORKER) Color, ur Yellow Yellow Clarity, ur Turbid(A) [...] tendency for uric acid stone formation. Source: [facility] [employer] Current Interpretive Data was last revised on [...] ([place]AY[place]) Urine, clean voided 07/26/2024 7:11 PM PEDIATRIC SOCIAL WORKER 07/26/2024 7:17 PM PEDIATRIC SOCIAL WORKER us Demi Elliott DO LAB MICROBIOLOGY - GENE RAL ORDERABLES Final Result [facility] ([place]) [facility] [place] [address] * (ABNORMAL) Urinalysis, microscopic only (07/26/2024 7:11 PM PEDIATRIC SOCIAL WORKER) WBC, ur 6-10(A) 0 - 5 /HPF RBC, ur 0-2 0 - 2 /HPF [facility] ([place]) Epithelial cells, squamous, ur 11-20(A) 0 - 5 /HPF [facility] ([place]) Bacteria, ur Trace(A) [facility] ([place]) Mucous, ur Present(A) [facility] ([place]) Culture Reflex Comment Reflex conditions for urine culture (WBC >10) not met. [facility] ([place] Urine, clean voided 07/26/2024 7:11 PM PEDIATRIC SOCIAL WORKER 07/26/2024 7:17 PM PEDIATRIC SOCIAL WORKER Demi Elliott DO LAB URINE ORDERABLES [facility] Result [facility] ([place]) 1 [facility] [place] [address] * Pap and HPV, reflex to HPV Genotypes (03/27/2023 3:20 PM CDT) CLINICAL INFORMATION: [facility] Comment:None given LMP [facility] Comment:NONE GIVEN Previous Pap [facility] Comment:NONE GIVEN Prev. Bx [facility] Comment:NONE GIVEN SOURCE: [facility] Comment:Cervix, Endocervix Pap, specimen adequacy [facility] Comment: Satisfactory for evaluation. Endocervical/transformation zone component present. Age and/or menstrual status not provided HPV interp [facility] Comment: Cytology Results: Negative for intraepithelial lesion or malignancy. Community Health Nursing Director [facility] Comment: [place], CT(ASCP) CT screening location: [place] [address] [place] [address] Comment [facility] Comment: EXPLANATORY NOTE: The Pap is a [...] High Risk E6/E7 Not Detected NOT DETECTED [facility] Comment: Not Detected High Risk HPV types (16,18,31,33,35,39,45,51,52, 56,58,59,66,68) were not detected. Other HPV types which cause anogenital lesions may be present. The significance of the other types of HPV in malignant processes has not been established. Methodology: Real Time PCR Thin prep 03/27/2023 3:20 PM CDT 03/28/2023 1:26 AM CDT Joann Bhatia NP LAB CYTOLOGY ORDERABLES Fin al [facility] [address] [place] [address] [facility]anjan [facility] [address] [address] from Last 3 Months or Most Recently Relevant to Health Maintenance Insurance [address] [place] [id number] [employer] [address] [place] [address] [place] [address] [place] [address] [employer] Care Teams Supervisor Filtration Relationship Specialty Start Date End Date No, Physician PCP - General 07/27/24 No, Physician 07/27/24
--- NOTE | 2024-10-20 06:16 | LDADM ---
This patient, Chely Brady, was admitted to Labor/Delivery/Recovery 120 on 10/20/24 at 05:30. Plans for repeat section were discussed with patient. Patient/family oriented to hospital policies and general routines including ID bracelet, bed and alarms, visiting hours, pain management, procedures, bathroom and other care routines, personal items, smoking policy, room service/diet and guest tray routines, infant security routines, and visiting hours. Patient/Family are encouraged to report perceived risks to care and to ask questions if they do not understand what they are told or what they should do. See OBIX for further documentation.
--- NOTE | 2024-10-20 06:24 | WPDANESEPPF ---
Anes - Initial Pre Proc Eval Procedure: Operation Date: 10/20/24 07:30 Proposed Procedures p Repeat Section with Bilateral Tubal Sterilization - Anupam Bey MD Date/Time: 10/20/24 06:24 Surgeon: Anupam Bey MD Pre Op Diagnosis: C/S Patient Data Age: 33 Gender: F Height: 1.6 m Weight: 107 kg Last Vital Signs Pulse 95 10/20/24 06:03 BP 128/70 10/20/24 06:03 O2 Del Method Room Air 10/20/24 06:14 Allergies Allergy/AdvReac Type Severity Reaction Status Date / Time Phenergen AdvReac Mild Body pain Uncoded 10/17/24 09:50 codeine AdvReac Eyes roll Uncoded 10/17/24 09:50 to back of head Home Medications ?Medication ?Instructions ?Recorded ?Confirmed ?Type [id number] 27 mg-folic pkg PO 03/09/24 10/17/24 History acid 800 mcg-dha 200 mg-lut.oral pack aspirin 81 mg tablet,delayed 81 mg PO DAILY #90 tabs 05/04/24 10/20/24 Rx release (Adult Aspirin Regimen) levothyroxine 125 mcg tablet 125 mcg PO DAILY #90 tabs 05/10/24 10/20/24 Rx sertraline 25 mg tablet (Zoloft) 25 mg PO DAILY #90 tabs 09/14/24 10/20/24 Rx diphenhydramine HCl 50 mg capsule 25 mg PO HS 10/20/24 10/20/24 History ([employer]) Patient hx anesthesia problems: none Family hx anesthesia problems: none Results Review: All pre-operative results and documents have been reviewed as part of the pre-operative evaluation. [facility] Past Medical History Medical History Abnormal glucose tolerance in Psoriasis Glenn thyroiditis Hyperthyroidism Surgical History Surgical History History of tonsillectomy History of appendectomy History of Family History Family History Father Hypertension Social History Social History Years smoked: 7 Smoking status: Former smoker Tobacco type: cigarettes Second hand tobacco smoke exposure: No Alcohol intake: former Substance use: never Substance use type: does not use Do You Feel Safe in your Home?: Yes Lack of Transportation: No Lack of Food: Never True Current Housing: I Have Housing Concerned About Future Housing: No Difficulty Paying Gas/Electric Bills: No Difficulty Paying for Meds: No Currently Unemployed: No Education: High School Diploma/GED Difficulty w/ Childcare or Family Care: No Living arrangements: with family Additional living arrangements comments: Occupation/Education: occupation Additional occupation/education comments: [employer] Gender identity (if verbalized by the patient): Female Sexual Orientation (if Verbalized by the Patient): Straight or Heterosexual Spiritual care concerns: No Anes - Eval Final PreProcedure Day of Procedure 10/20/24 06:24 Patient weight: morbidly obese Heart: regular rate and rhythm Lungs: clear to auscultation Airway: Mallampati scale class II Neurological: alert and oriented Last oral intake: >/= 8 hours ASA classification: III Emergent: no Anesthetic plan: proceed Anesthesia type and monitoring: regional spinal and standard monitoring Results Review: All pre-operative results and documents have been reviewed as part of the pre-operative evaluation. Informed Consent: The patient's anesthetic plan and its attendant risks and benefits were discussed with the patient/family/POA. Questions were solicited and answers provided to the satisfaction of the patient/family/POA.
[2024-10-20] MEDS: ACETAMINOPHEN 500 MG TABLET 1000 MG PO (06:27)
[2024-10-20] MEDS: LACTATED RINGERS 1,000 ML 125 ML IV CONT ×2 (06:47→07:12)
--- NOTE | 2024-10-20 06:52 | PM.IMHP ---
H&P: HPI History of Present Illness Date/Time: 10/20/24 06:52 Chief Complaint: Intrauterine at term prior x1 desires permanent sterilization Narrative: 33 yo at 39w4d who presents for repeat . Patient also desires permanent sterilization. Review of Systems Cardiovascular: Cardiovascular: Denies chest pain, Denies leg edema, Denies palpitations, Denies dyspnea and Denies dyspnea on exertion Respiratory: Respiratory: Denies cough, Denies dyspnea and Denies dyspnea on exertion Gastrointestinal: Gastrointestinal: Denies abdominal pain, Denies constipation, Denies diarrhea, Denies nausea and Denies vomiting Genitourinary: Genitourinary: Denies hematuria, Denies urinary frequency, Denies dysuria, Denies pelvic pain, Denies urinary incontinence and Denies vaginal discharge Neurologic: Reports system reviewed and no additional complaints, except as documented Psychiatric: Psychiatric: Reports no additional psychiatric complaints Endocrine: Endocrine: Denies palpitations PMFSH Past Medical History Medical History Abnormal glucose tolerance in Psoriasis Glenn thyroiditis Hyperthyroidism Surgical History Surgical History History of tonsillectomy History of appendectomy History of Family History Family History Father Hypertension Social History Social History Years smoked: 7 Smoking status: Former smoker Tobacco type: cigarettes Second hand tobacco smoke exposure: No Alcohol intake: former Substance use: never Substance use type: does not use Do You Feel Safe in your Home?: Yes Lack of Transportation: No Lack of Food: Never True Current Housing: I Have Housing Concerned About Future Housing: No Difficulty Paying Gas/Electric Bills: No Difficulty Paying for Meds: No Currently Unemployed: No Education: High School Diploma/GED Difficulty w/ Childcare or Family Care: No Living arrangements: with family Additional living arrangements comments: Occupation/Education: occupation Additional occupation/education comments: [employer] Gender identity (if verbalized by the patient): Female Sexual Orientation (if Verbalized by the Patient): Straight or Heterosexual Spiritual care concerns: No Meds Home Medications and Allergies Home Medications ?Medication ?Instructions ?Recorded ?Confirmed ?Type [id number] 27 mg-folic pkg PO 03/09/24 10/17/24 History acid 800 mcg-dha 200 mg-lut.oral pack aspirin 81 mg tablet,delayed 81 mg PO DAILY #90 tabs 05/04/24 10/20/24 Rx release (Adult Aspirin Regimen) levothyroxine 125 mcg tablet 125 mcg PO DAILY #90 tabs 05/10/24 10/20/24 Rx sertraline 25 mg tablet (Zoloft) 25 mg PO DAILY #90 tabs 09/14/24 10/20/24 Rx diphenhydramine HCl 50 mg capsule 25 mg PO HS 10/20/24 10/20/24 History ([employer]els) Allergies Allergy/AdvReac Type Severity Reaction Status Date / Time Phenergen AdvReac Mild Body pain Uncoded 10/17/24 09:50 codeine AdvReac Eyes roll Uncoded 10/17/24 09:50 to back of head Vital Signs Vital Signs - 24 hr 10/20/24 06:03 10/20/24 06:14 Pulse Rate 95 Blood Pressure 128/70 Oxygen Delivery Room Air Exam Const: General: no acute distress Eyes: EOM: EOMs intact bilaterally Neck: Neck: supple Thyroid: thyroid normal Chest: Breast/axilla inspection: normal inspection of the breasts Breast/axilla palpation: normal palpation of the breasts, normal palpation of the axillae and no axillary lymphadenopathy Resp: Effort & Inspection: normal respiratory effort Auscultation: clear to auscultation bilaterally Cardio: Rate: regular rate Rhythm: regular rhythm GI: Inspection: non-distended and other (Gravid) GI Palp: Yes Soft to palpation, No Tenderness to palpation present (GI) and No Guarding due to palpation present (GI) Auscultation: normal bowel sounds : Speculum Exam - Vagina: No vaginal bleeding OB/external & speculum: external exam normal; No vaginal bleeding Skin: General skin exam: normal color and no rashes or lesions noted Neuro: Cognition (Neuro): normal cognition Speech: normal speech Extrem: General: normal to inspection Psych: Mental Status: mental status grossly normal Affect: normal affect Assessment and Plan Assessment and plan (1) Supervision of high risk , unspecified, third trimester: Code(s): O09.93 - Supervision of high risk , unspecified, third trimester Status: Acute Assessment and Plan: -h/o x1- repeat at 39w -hypothyroidism- on levothyroxine -Rh neg -depression/anxiety- prozac -obesity-on low dose ASA -requests permanent sterilization with c-sec (2) History of : Code(s): Z98.891 - History of uterine scar from previous surgery Status: Acute (3) Hypothyroidism: Code(s): E03.9 - Hypothyroidism, unspecified Status: Acute (4) Encounter for sterilization: Code(s): Z30.2 - Encounter for sterilization Status: Acute (5) Depression: Code(s): F32.A - Depression, unspecified Status: Acute
[2024-10-20] MEDS: ONDANSETRON INJ 4 MG/2 ML VIAL IV PUSH ×2 (07:11→07:30)
[2024-10-20] MEDS: FAMOTIDINE 20 MG/2 ML VIAL IV PUSH (07:12)
--- NOTE | 2024-10-20 07:14 | WPDHPUPDATE1 ---
History and Physical Update Update Date/Time: 10/20/24 07:14 History and Physical has been reviewed, including an updated exam of the patient. There are NO changes in the patient's condition. Risks, benefits, and alternatives have been discussed and questions answered. Patient agrees to proceed with procedure.
[2024-10-20] MEDS: ceFAZolin 2 GM/D5W 50 ML 2 GM/50 ML BAG IVPB (07:20)
--- NOTE | 2024-10-20 08:23 | P.PCNOB_ITS ---
OB - Delivery Note Procedure Delivery date: 10/20/24 Pre-op diagnosis: Previous Delivery Post-op Diagnosis: Same Induction method: None Delivery monitor: External FHT Prior to decision for section, ACOG/SM labor guidelines were considered and discussed with the patient and staff. Decision made to proceed with the section.: Yes Procedure Performed: Repeat Secondary branch: low cervical, transverse and Tubal Ligation Surgeon: Anupam Bey MD Anesthesia type: Spinal Description of Procedure/Findings: The patient was taken to the operating room where epidural anesthesia was found to be adequate. She was then prepped and draped in the usual sterile fashion in the dorsal supine position with a leftward tilt. A Pfannenstiel skin incision was then made with the scalpel and carried through to the underlying layer of fascia. The fascia was then incised in the midline and the incision extended laterally with the Ho scissors. The superior aspect of the fascia was then grasped with the Justin clamps, elevated, and the underlying rectus muscles dissected off bluntly and sharply. Attention was then turned to the inferior aspect of this incision which, in a similar fashion, was grasped, tented up with the Justin clamps, and the rectus muscles dissected off both bluntly and sharply. The rectus muscles were then in the midline, and the peritoneum identified, tented up, and entered sharply with the Metzenbaum scissors. The peritoneal incision was then extended superiorly and inferiorly with good visualization of the bladder. The ring retractor was placed intraabdominally for excellent exposure. The lower uterine segment incised in a low, transverse fashion with the scalpel. The uterine incision was then extended laterally bluntly. The bladder blade was removed and the ?s head delivered atraumatically. The nose and mouth were suctioned with the bulb suction, and the remainder of the infant was delivered atraumatically. The cord was clamped and cut. The infant was handed off to the waiting pediatricians (staff). Cord gasses were sent. The placenta was then removed manually, the uterus exteriorized, and cleared of all clots and debris. The uterine incision was repaired with 0 monocryl in a running fashion. A second imbricating layer of 0 monocryl was also placed. Both fallopian tubes were identified and followed out to the fimbriae bilaterally. The left fallopian tube was grasped with Babcocks and elevated to identify an avascular space in the mesosalpinx. The inferior mesosalpinx was then transected using the Ligasure device. Transection was continued toward the uterine corpus. The fallopian tube was completely transected at the uterine coprus. The same procedure was repeated for the right fallopian tube. The uterus was returned to the abdomen. The uterus was then reinspected to ensure hemostasis as were all subfascial tissues. The peritoneum was re-approximated with 3-0 vicryl in a running fashion. The fascia was reapproximated with 0 vicryl in a running fashion. The subcutaneous layer was copiously irrigated to clear any clots or debris. The subcutaneous tissue was reapproximated using 3-0 Vicryl in a running fashion. The skin was closed with 4-0 monocryl. The patient tolerated the procedure well. Sponge, lap and needle counts were correct times three. The patient was taken to the recovery room in stable condition. Specimen: No Estimated Blood Loss: 400 Urine Output: 150 Drains: No Packing: No Pathology: None sent Complications: No immediate complications Condition: Stable Disposition: [place] Baby Date of : 10/20/24 Gestational Age by Date: 39 Infant gender: Male Weight (pounds): 9 Weight (ounces): 4 presentation: vertex Placenta delivery description: Manual Removal Cord Vessel Description: 3 Vessels score one minute: 8 score five minutes: 9
[2024-10-20] MEDS: OXYTOCIN 30 UNITS/NS 500 ML 30 UNITS/500 ML BAG 125 UNITS IV CONT (10:27)
--- NOTE | 2024-10-20 12:20 | PC.NURSE ---
Introductions were made, then consulted with patient to assess needs related to . Mother led the conversation with her?plans to feed?her and the?experience so far. Per mother she breastfed well after delivery and plans to exclusively breastfeed. Encouraged understanding of the benefits of skin to skin (demonstrating unwrapping infant and placing upright on her chest), stimulating with massage touch, changing positions to encourage wakefulness, how to watch for early feeding cues, responsive feeding, feeding on demand (aiming for 8-12 times in 24 hours, about every 2-3 hours), milk production, building/maintaining a milk supply, duration of feeding, signs of adequate intake/output and how to record on the feeding sheet. Mother works well with her infant with encouragement and education, RN assisted with positioning and latch. Reviewed positioning and ear, shoulder, hip alignment, supporting the breast to facilitate a deep latch, asymmetrical latch (off-center), leading with the chin with a big, open, wide gape and body close to mother. Infant latched optimally to the [left] breast in [football] position. Education given to the mother of how to visualize the suckling (with good rocking jaw motion), swallows (dropping of the lower jaw) and how to listen for drinking at the breast (the ka sound). Infant was [able] to maintain latch without pain to mother protecting the nipple with optimal positioning and latching. Reviewed comfort measures of healing with a warm, wet washcloth to rinse breast, then leave open to air-dry, good handwashing when or touching the breast/nipples to prevent infection. Mother voiced understanding of skin to skin, stimulating with massage touch, responsive feedings, hand expressed colostrum, talking to to encourage if it has been 2 -2.5 hours since the start of the last , to call if does not latch, or if there is discomfort with . Resources used for education were facilitated with the [visual educational handouts/ tool/mom and baby guide], Inpatient/outpatient resources provided with business card, feeding sheet, name written on the communication board, and the mom/baby guide. Parents voiced understanding of information, demonstrated learning and will call if there is a request for assistance. Reported to the Primary RN.
[2024-10-20] MEDS: KETOROLAC 15 MG/ML VIAL (*BKC) IV PUSH ×2 (13:40→18:33)
[2024-10-20] MEDS: ACETAMINOPHEN 325 MG TABLET 650 MG PO ×2 (13:40→18:33)
[2024-10-20] MEDS: DEXTROSE 5%/0.45% SOD CHL 1,000 ML 125 ML IV CONT (15:00)
[2024-10-20] MEDS: SIMETHICONE 80 MG TAB.CHEW PO (18:34)
[2024-10-20] MEDS: DOCUSATE SODIUM 100 MG CAPSULE PO (18:34)
[2024-10-20] MEDS: LIDOCAINE 5% PATCH 1 PATCH TRANSDERM (18:35)
[2024-10-21] MEDS: KETOROLAC 15 MG/ML VIAL (*BKC) IV PUSH ×2 (00:19→06:07)
[2024-10-21] MEDS: ACETAMINOPHEN 325 MG TABLET 650 MG PO ×4 (00:19→19:39)
[2024-10-21] MEDS: HYDROcodone/acetaminophen (*CRX) 5-325 MG TABLET 1 TAB PO ×3 (02:20→13:55)
[2024-10-21 04:10] VITALS: BP 108/67; PULSE 78; RESP 16; TEMP 36.1; O2SAT 100
[2024-10-21 05:18] LABS: Basophils Percent Auto 0.3 % (0.2-1.2); Eosinophils Absolute Auto 0.1 K/mm3 (0-0.3); Eosinophils Percent Auto 1.3 % (0-4.4); Hematocrit 32.2 % (37.0-47.0); Hemoglobin 10.4 g/dL (12.0-15.0); Immature Granulocyte Absolute 0.05 K/mm3 (0.00-0.031); Immature Granulocyte Percent A 0.5 % (0-0.5); Lymphocytes Absolute Auto 1.67 K/mm3 (0.9-3.2); Lymphocytes Percent Auto 17.1 % (18.3-44.2); Mean Corpuscular HGB Conc 32.3 g/dl (32-36); Mean Corpuscular Volume 92.8 fl (80-100); Mean Platelet Volume 12.3 fl (7.4-10.4); Monocytes Absolute Auto 0.6 K/mm3 (0.1-0.6); Monocytes Percent Auto 6.6 % (2.6-8.5); Neutrophils Absolute Auto 7.3 K/mm3 (1.3-6.7); Neutrophils Percent Auto 74.2 % (45.5-73.1); Platelet Count Result 142 k/mm3 (150-375); Red Blood Count 3.47 M/mm3 (4.2-5.4); Red Cell Distribution Width 15.3 % (11.5-14.5); White Blood Count 9.8 K/mm3 (4.5-10.0)
[2024-10-21] MEDS: MULTIVIT/MIN/PREN/FOL AC/IRON TABLET 1 TAB PO (07:41)
[2024-10-21] MEDS: DOCUSATE SODIUM 100 MG CAPSULE PO ×2 (07:41→19:43)
[2024-10-21] MEDS: SIMETHICONE 80 MG TAB.CHEW PO ×3 (07:41→19:41)
[2024-10-21 08:05] VITALS: BP 117/70; PULSE 75; RESP 18; TEMP 36.2; O2SAT 99
--- NOTE | 2024-10-21 08:50 | WPDANLDPN2 ---
Anes-Prog Note L&D Date/Time: 10/21/24 08:50 Comfortable throughout: section Neuraxial method: spinal Epidural/Spinal procedure site: clean & non-tender Neuro status: Neuro function grossly intact. Cardiovascular status: normal Respiratory status: normal Airway patency: baseline Mental status: baseline Post-Op hydration status: normal Vital Signs: Last Vital Signs Temp 36.1 C L 10/21/24 04:10 Pulse 78 10/21/24 04:10 Resp 16 10/21/24 04:10 BP 108/67 10/21/24 04:10 Pulse Ox 100 10/21/24 04:10 O2 Del Method Room Air 10/20/24 19:00 Pain score (VAS): 2 I/O: Intake & Output 10/20/24 10/21/24 10/21/24 23:59 07:59 15:59 Intake Total 750 Output Total 450 1200 Balance -450 -450 Patient feedback: Patient satisfied with anesthetic care.
--- NOTE | 2024-10-21 08:50 | WPDANLDNPN2 ---
Anes-Prog Note L&D-Neuraxial Date/Time: 10/21/24 08:50 Neuraxial medications: intrathecal PF morphine Opiod-related complaints: none Patient feedback: Patient satisfied with post-operative pain management.
--- NOTE | 2024-10-21 10:50 | PC.NURSE ---
Introductions were made, then consulted with patient to assess needs related to . Mother led the conversation with her?plans to feed?her and the?experience so far. Per mother baby had a harder time latching through the night so her primary RN did pull her a nipple shield. She had latched baby at 1035, so baby had been feeding for 15 mins when this RN in room. Baby was not satisfied at the breast and would not maintain his latch, mother decided to go ahead and give a formula bottle. RN advised mother if she was using the nipple shield 3 times then she needed to use her breast pump that she had brought after each feeding to protect her milk supply. Per mother she had pumped a few times last night as well but did not collect any colostrum as of yet. RN encouraged understanding of the benefits of skin to skin (demonstrating unwrapping infant and placing upright on her chest), stimulating with massage touch, changing positions to encourage wakefulness, how to watch for early feeding cues, responsive feeding, feeding on demand (aiming for 8-12 times in 24 hours, about every 2-3 hours), milk production, building/maintaining a milk supply, duration of feeding, signs of adequate intake/output and how to record on the feeding sheet. Mother works well with her infant with encouragement and education. Reviewed positioning and ear, shoulder, hip alignment, supporting the breast to facilitate a deep latch, asymmetrical latch (off-center), leading with the chin with a big, open, wide gape and body close to mother. Education given to the mother of how to visualize the suckling (with good rocking jaw motion), swallows (dropping of the lower jaw) and how to listen for drinking at the breast (the ka sound). Reviewed comfort measures of healing with a warm, wet washcloth to rinse breast, then leave open to air-dry, good handwashing when or touching the breast/nipples to prevent infection. Mother voiced understanding of skin to skin, stimulating with massage touch, responsive feedings, hand expressed colostrum, talking to infant to encourage if it has been 2 -2.5 hours since the start of the last , to call if does not latch, or if there is discomfort with . Resources used for education were facilitated with the [visual educational handouts/ tool/mom and baby guide], Inpatient/outpatient resources provided with business card, feeding sheet, name written on the communication board, and the mom/baby guide. Parents voiced understanding of information, demonstrated learning and will call if there is a request for assistance. Reported to the Primary RN.
--- NOTE | 2024-10-21 12:49 | PM.OBPNVD ---
OB - PN: Subj Subjective Date/time seen: 10/21/24 12:49 S: Diet ambulation tolerated. Pain well controlled though still uncomfortable. Voiding without difficulty. O: VSS afebrile Abdomen positive bowel sounds soft fundus nontender. Incision clean dry and intact with ambar. Labs noted A: Doing well postoperative day 1 P: Routine /postoperative care, likely home tomorrow on postop day 2 OB - PN: Obj Data Labs 10/21/24 04:23 Labs: Laboratory Results - last 24 hr 10/21/24 04:23 WBC 9.8 RBC 3.47 L Hgb 10.4 L Hct 32.2 L MCV 92.8 MCH 30.0 MCHC 32.3 RDW 15.3 H Plt Count 142 L MPV 12.3 H Immature Gran % (Auto) 0.5 Neut % (Auto) 74.2 H Lymph % (Auto) 17.1 L [place] % (Auto) 6.6 Eos % (Auto) 1.3 Baso % (Auto) 0.3 Lymph # (Auto) 1.67 [place] # (Auto) 0.6 Eos # (Auto) 0.1 Baso # (Auto) 0.0 Abs Immat Gran (auto) 0.05 H Absolute Neuts (auto) 7.3 H Absolute Nucleated RBC 0.000 Nucleated RBC % 0.0 OB - PN A/P Time Spent With Patient Time: Total time spent is greater than 50% in coordination of care (as documented) at patient's floor/unit and/or counseling patient:
[2024-10-21] MEDS: IBUPROFEN 600 MG TABLET PO ×2 (13:05→19:40)
[2024-10-21] MEDS: HYDROcodone/acetaminophen (*CRX) 10-325 MG TABLET 1 TAB PO (19:39)
[2024-10-21 19:45] VITALS: BP 129/78; PULSE 93; RESP 18; TEMP 36.4; O2SAT 99
[2024-10-21] MEDS: LIDOCAINE 5% PATCH 1 PATCH TRANSDERM (19:52)
[2024-10-21 23:00] VITALS: BP 135/79; PULSE 90; RESP 18; TEMP 36.1; O2SAT 100
[2024-10-22] MEDS: ACETAMINOPHEN 325 MG TABLET 650 MG PO ×2 (02:08→08:05)
[2024-10-22] MEDS: IBUPROFEN 600 MG TABLET PO ×2 (02:08→08:05)
[2024-10-22] MEDS: MULTIVIT/MIN/PREN/FOL AC/IRON TABLET 1 TAB PO (08:05)
--- NOTE | 2024-10-22 08:26 | P.DS_ITS ---
DS: Admitting Diagnosis Discharge Date 10/22/2024 Admitting Diagnosis DS: Discharge Diagnosis Discharge Diagnosis (1) , delivered: Code(s): O80 - Encounter for full-term uncomplicated delivery Status: Acute OB - DS: Summary OB Procedures : None OB Procedures Intrapartum: low cervical, transverse OB Procedures: : None Peripartum Data Procedures: Procedures Operation Date: 10/20/24 07:30 Actual Procedure Side Surgeon p Repeat Section with Bilateral Tubal Sterilization Bilateral Anupam Bey MD Time Spent with Patient Time attestation: Total time spent providing and/or coordinating discharge services: DS: Data Data Completed and Pending Pending studies at discharge: Pending at discharge 10/20/24 08:43 Cytology [PTH] Routine Discharge Plan Discharge Discharging Clinician: Trevor Amor Patient Disposition: Home, Self-Care Activity: may shower, no straining, follow weight bearing status and pelvic rest Diet: as tolerated Wound Care Instructions: incision open to air Discharge Instructions: Call office Thursday for appointment this week to have ambar removed Patient Instructions: Antibiotic Form Patient Language: [place] Stand Alone Forms: General Discharge Information Follow-up/Referrals: Anupam Bey MD [Physician] - 4 Weeks Discharge Medications: New hydrocodone-acetaminophen 5-325 mg Tablet 1 tablet PO Q3H PRN (Reason: Breakthrough Pain Rated 4-6) Qty: 20 0RF ibuprofen 600 mg Tablet 600 mg PO Q6H Qty: 30 0RF Continued PNV [id number]-lutein 27 mg iron-800 mcg-200 mg combo pack PO diphenhydramine HCl [Unisom SleepGels] 50 mg capsule 25 mg PO HS levothyroxine 125 mcg tablet 125 mcg PO DAILY Qty: 90 1RF sertraline [Zoloft] 25 mg tablet 25 mg PO DAILY Qty: 90 3RF Discontinued aspirin [Adult Aspirin Regimen] 81 mg tablet,delayed release (DR/EC) 81 mg PO DAILY Qty: 90 2RF Date of admission: 10/20/24 05:30 Primary Care Provider: Vaishnavi Owens Admitting Provider: Anupam Bey Attending physician on admission: Anupam Bey Condition: Stable
[2024-10-22 08:30] VITALS: BP 118/71; PULSE 82; RESP 18; TEMP 37.1; O2SAT 100
[2024-10-22] MEDS: HYDROcodone/acetaminophen (*CRX) 10-325 MG TABLET 1 TAB PO (08:45)
--- NOTE | 2024-10-22 09:45 | PC.NURSE ---
Consulted with mother concerning needs and she shared her ability independently latch infant to the nipple shield. She states there is pain and bleeding with use of the shield. We reviewed the proper ways to use and maintain the latch with the shield. Mom is giving formula as well. He ultimate goal is to breastfeed. Encouraged consistent pumping at all feedings that doesn't breastfeed well at. We also discussed the practicality of triple feeding and that it is a short term solution. Patient is instructed to call out before discharge so that we may see a latch with the shield and work on latching without it. Mother is feeding appropriately for growth of infant and understands stimulating infant to eat if needed. has had appropriate feedings in the last 24 hours meets the outcomes for weight, output, blood sugar and jaundice at this time. Reinforced understanding of milk production, transition of milk, signs of adequate intake, transition of stool, prevention/relief of engorgement, plugged ducts, mastitis, responsive watching for feeding cues, the different methods of stimulating to breastfeed 1-3 hours after the start of the last feeding, community resources (patient has her own breast pump), and when to call a provider using the resource of the feeding sheet along with the mom and baby guide. Mother voiced understanding of the information shared, is encouraged to call for outpatient assistance after discharge if needed, denies any additional assistance or education at this time. Reported to the Primary RN.
--- NOTE | 2024-10-22 10:40 | PC.NURSE ---
Mother called out for assistance. Baby was awake and eager and we placed him in football hold on the right breast. She states this is the side that she struggles with more. Baby latched well on the second attempt and was able to maintain the latch well. Mom was shown how to observe for the wide mouth and chin on the breast. Baby's lips are a little tight and we observed how to check for flanging on top and bottom. Baby was vigorous and swallowed with every suck for 6+ times in a row. Mom was able to confirm she heard the swallows. We reviewed nipple care and that air drying, lanolin or expressed milk, and the hydrogel pads can promote healing. Advised mother that her nipple pain and trauma should be getting better, not worse. Encouraged mom to call out for assistance with latching to the left breast. Reported to primary RN.
--- NOTE | 2024-10-22 11:24 | PC.NURSE ---
Patient viewed the discharge video Mother & Baby Care, The First Two Weeks . Patient was given the opportunity and encouraged to ask questions. Patient verbalized understanding of information shared and has been given the mother/baby guide for home reference.
[2024-10-22] MEDS: SIMETHICONE 80 MG TAB.CHEW PO (12:33)
[2024-10-24 11:35] VITALS: BP 129/75; PULSE 82; RESP 20; TEMP 36.8; O2SAT 99
== END 2024-10-22 13:20 | disposition home or self-care (01) | DRG 785 ==
LOC: ANHOB2 10-22 08:27 → ANHLDR 10-25 06:16 → ANHOB2 10-25 06:16
PROVIDERS: Admitting Provider Student in an Organized Health Care Education/Training Program; Visit Provider Obstetrics & Gynecology
PROC: 10D00Z1 Extraction of Products of Conception, Low, Open Approach (ICD-10-PCS; CPT 59514; principal; 2024-10-20 07:30)
DX: O34.211 Maternal care for low transverse scar from previous cesarean delivery (principal); Z37.0 Single live birth; Z3A.39 39 weeks gestation of pregnancy; O99.824 Streptococcus B carrier state complicating childbirth; O69.81X0 Labor and delivery complicated by cord around neck, without compression, not applicable or unspecified; Z30.2 Encounter for sterilization; O99.284 Endocrine, nutritional and metabolic diseases complicating childbirth; E03.9 Hypothyroidism, unspecified; O99.344 Other mental disorders complicating childbirth; F41.8 Other specified anxiety disorders; O26.893 Other specified pregnancy related conditions, third trimester; Z67.91 Unspecified blood type, Rh negative
CPT/HCPCS: 36415; 85025; 88302; A9270; J0690; J1885; J2274; J2371; J2405; J2590; J7120